=== PATIENT | male | born 1990 | race African-American/Black ===

== ENCOUNTER 2019-05-28 05:57 | Inpatient (IN) | payer OTHER ==
[2019-05-28] MEDS ORDERED: FENTAnyl 50 MCG/ML VIAL ×2 (07:29→11:00)
[2019-05-28] MEDS ORDERED: CLINDAMYCIN 900 MG/D5W (PMX) 0 ML IVPB (07:29)
[2019-05-28] MEDS ORDERED: LIDOCAINE 2% (SDV) 5 ML INJ (07:29)
[2019-05-28] MEDS ORDERED: PROPOFOL 40 ML (07:29)
[2019-05-28] MEDS ORDERED: ROCURONIUM 50 MG INJ ×2 (07:29→08:40)
[2019-05-28] MEDS ORDERED: ONDANSETRON 4 MG INJ (07:29)
[2019-05-28] MEDS ORDERED: MIDAZOLAM 1 MG/ML 2 ML INJ (07:29)
[2019-05-28] MEDS ORDERED: FENTAnyl 50 MCG/ML VIAL IV ×2 (07:30)
[2019-05-28] MEDS ORDERED: DIPHENHYDRAMINE 50 MG INJ IV (07:30)
[2019-05-28] MEDS ORDERED: LABETALOL HCL 20MG INJ IV (07:30)
[2019-05-28] MEDS ORDERED: EPHEDrine 25 MG/5 ML SYG IV (07:30)
[2019-05-28] MEDS ORDERED: HYDROmorphONE 1 MG/5 ML IV SYRINGE IV ×3 (07:30)
[2019-05-28] MEDS ORDERED: morphine 2 MG INJ IV ×2 (07:30)
[2019-05-28] MEDS ORDERED: ALBUTEROL 0.083% (NEB) 2.5 MG/3 ML AMP HHN (07:30)
[2019-05-28 07:31] LABS: INR 0.91; PROTIME 12.4 Sec (11.9-14.9)
[2019-05-28] MEDS ORDERED: ROPIVACAINE 0.5 % 30 ML VIAL (07:42)
[2019-05-28] MEDS ORDERED: FAMOTIDINE 20 MG INJ (07:47)
[2019-05-28] MEDS ORDERED: CEFAZOLIN 1 GM INJ IV (08:00)
[2019-05-28] MEDS ORDERED: ONDANSETRON 4 MG INJ IV (08:00)
[2019-05-28] MEDS ORDERED: CEFAZOLIN 1 GM INJ (08:11)
[2019-05-28] MEDS: POLYMYXIN/BACITRACIN 1L IRRIG ×2 (08:42→10:30)
[2019-05-28] MEDS: ROPIVACAINE 0.5 % 30 ML VIAL (08:42)
[2019-05-28] MEDS: BACITRACIN/POLYMYXIN 28.35 GM OINT TOP (10:30)
[2019-05-28] MEDS ORDERED: NEOSTIGMINE 3 MG/3 ML SYRINGE (10:46)
[2019-05-28] MEDS ORDERED: GLYCOPYRROLATE 0.4 MG INJ (10:46)
[2019-05-28] MEDS ORDERED: hydrALAzine 20 MG INJ (11:51)
[2019-05-28] MEDS: MEPERIDINE 25 MG INJ IV (11:52)
[2019-05-28] MEDS: ONDANSETRON 4 MG INJ IV (11:53)
[2019-05-28] MEDS: hydrALAzine 20 MG INJ IV (12:57)
[2019-05-28] MEDS: HYDROmorphONE 1 MG/ML SYG IV ×3 (13:55→21:35)
[2019-05-28] MEDS: CEFAZOLIN 1 GM/50 ML (PMX) 50 ML IVPB ×2 (16:48→23:09)
[2019-05-28] MEDS: oxyCODONE 5 MG TAB PO (20:04)
[2019-05-29] MEDS ORDERED: hydrOXYzine HCL 25 MG TAB PO (01:00)
[2019-05-29] MEDS: oxyCODONE 5 MG TAB PO ×3 (01:01→10:14)
[2019-05-29] MEDS: HYDROmorphONE 1 MG/ML SYG IV ×3 (03:19→08:27)
[2019-05-29 04:56] LABS: ADD MAN DIFF? NO
[2019-05-29 05:06] LABS: WHITE BLOOD COUNT 10.5 10^3/ul (4.8-10.8)
[2019-05-29 05:06] LABS: BASOPHILS % 0.3 % (0.0-2.0); EOSINOPHILS % 0.1 % (0.0-7.0); HEMOGLOBIN 11.1 g/dl (14.0-18.0); LYMPHOCYTES % 9.6 % (15.0-51.0); MEAN CORPUSCULAR HEMOGLOBIN 27.4 pg (29.0-33.0); MEAN CORPUSCULAR HGB CONC 34.7 g/dl (32.0-37.0); MEAN PLATELET VOLUME 10.5 fl (7.4-10.4); MONOCYTE # 1.1 10^3/ul (0.3-0.9); MONOCYTES % 10.6 % (0.0-11.0); NEUTROPHIL # 8.3 10^3/ul (1.6-7.5); PLATELET COUNT 286 10^3/UL (140-415); RED BLOOD COUNT 4.05 10^6/ul (4.70-6.10); RED CELL DISTRIBUTION WIDTH 14.1 % (11.5-14.5)
[2019-05-29 05:14] LABS: ALANINE AMINOTRANSFERASE 20 IU/L (13-69); ALBUMIN 3.6 g/dl (3.3-4.9); ALKALINE PHOSPHATASE 37 IU/L (42-121); ANION GAP 8 (5-13); ASPARTATE AMINO TRANSFERASE 40 IU/L (15-46); BILIRUBIN,INDIRECT 0.6 mg/dl (0-1.1); BILIRUBIN,TOTAL 0.6 mg/dl (0.2-1.3); BLOOD UREA NITROGEN 8 mg/dl (7-20); CARBON DIOXIDE 27 mmol/L (21-31); CHLORIDE 102 mmol/L (97-110); CREATININE 0.91 mg/dl (0.61-1.24); Estimated GFR > 60 mL/min (>60); GLUCOSE 106 mg/dl (70-220); POTASSIUM 3.8 mmol/L (3.5-5.1); SODIUM 137 mmol/L (135-144); TOTAL PROTEIN 6.6 g/dl (6.1-8.1)
[2019-05-29] MEDS: LEVOTHYROXINE 50 MCG TAB PO (06:25)
[2019-05-29] MEDS: CEFAZOLIN 1 GM/50 ML (PMX) 50 ML IVPB ×3 (06:25→21:28)
[2019-05-29 07:42] LABS: IRON 17 ug/dl (35-150)
[2019-05-29 07:51] LABS: % IRON SATURATION 6 % SAT (22-52); TOTAL IRON BINDING CAPACITY 287 ug/dl (241-421)
[2019-05-29] MEDS: PROPRANOLOL 10 MG TAB PO ×2 (08:25→21:28)
[2019-05-29] MEDS ORDERED: DIVALPROEX (EC) 250 MG TAB PO (09:00)
[2019-05-29] MEDS ORDERED: BENZTROPINE 1 MG TAB PO (09:00)
[2019-05-29] MEDS: ACETAMINOPHEN 325 MG TAB PO (10:14)
[2019-05-29] MEDS: DIPHENHYDRAMINE 25 MG CAP PO (10:14)
[2019-05-29] MEDS ORDERED: HYDROCODONE/APAP (5/325) TAB NGT (11:00)
[2019-05-29] MEDS ORDERED: HYDROCODONE/APAP (5/325) TAB PO (11:00)
[2019-05-29] MEDS: HYDROCODONE/APAP (5/325) TAB PO ×2 (13:28→17:31)
[2019-05-29 14:53] LABS: ADD UMIC NO; UR ASCORBIC ACID NEGATIVE (NEGATIVE); UR BILIRUBIN (Dip) NEGATIVE (NEGATIVE); UR BLOOD (Dip) NEGATIVE (NEGATIVE); UR CLARITY CLEAR (CLEAR); UR COLOR YELLOW (YELLOW); UR GLUCOSE (Dip) 1+ mg/dL (NEGATIVE); UR KETONES (Dip) 1+ mg/dL (NEGATIVE); UR LEUKOCYTE ESTERASE (Dip) NEGATIVE Leu/ul (NEGATIVE); UR NITRITE (Dip) NEGATIVE (NEGATIVE); UR SPECIFIC GRAVITY (Dip) 1.017 (1.003-1.030); UR TOTAL PROTEIN (Dip) NEGATIVE (NEGATIVE); UR UROBILINOGEN (Dip) NEGATIVE (NEGATIVE)
[2019-05-29] MEDS: FERROUS SULFATE (EC) 325 MG TAB PO ×2 (15:33→21:27)
[2019-05-29] MEDS: ERGOCALCIFEROL 50,000 UNIT CAP PO (21:26)
[2019-05-29] MEDS: BENZTROPINE 1 MG TAB PO (21:26)
[2019-05-29] MEDS: ASCORBIC ACID 500 MG TAB PO (21:26)
[2019-05-29] MEDS: DIVALPROEX (EC) 250 MG TAB PO (21:27)
[2019-05-30] MEDS: HYDROCODONE/APAP (5/325) TAB PO ×3 (04:59→17:46)
[2019-05-30] MEDS: CEFAZOLIN 1 GM/50 ML (PMX) 50 ML IVPB (06:06)
[2019-05-30] MEDS: LEVOTHYROXINE 50 MCG TAB PO (06:07)
[2019-05-30] MEDS: ASCORBIC ACID 500 MG TAB PO (09:01)
[2019-05-30] MEDS: FERROUS SULFATE (EC) 325 MG TAB PO (09:01)
[2019-05-30] MEDS: PROPRANOLOL 10 MG TAB PO (09:01)
== END 2019-05-30 19:20 | disposition home or self-care (01) | DRG 488 ==
LOC: SDS 05:57 → MS1 05-30 13:46 → SDS 05:57 → MS1 05-30 13:51 → SDS 07:40 → REC 07:40 → MS1 12:30
PROC: 0SBC4ZZ Excision of Right Knee Joint, Percutaneous Endoscopic Approach (ICD-10-PCS; principal; 2019-05-28 07:30)
PROC: 0QBG0ZZ Excision of Right Tibia, Open Approach (ICD-10-PCS; 2019-05-28 07:30)
PROC: 0MQN0ZZ Repair Right Knee Bursa and Ligament, Open Approach (ICD-10-PCS; 2019-05-28 07:30)
DX: M22.41 Chondromalacia patellae, right knee (principal); J98.11 Atelectasis; M23.51 Chronic instability of knee, right knee; S76.111A Strain of right quadriceps muscle, fascia and tendon, initial encounter; X58.XXXA Exposure to other specified factors, initial encounter; E03.9 Hypothyroidism, unspecified; F31.9 Bipolar disorder, unspecified; D50.9 Iron deficiency anemia, unspecified; R50.82 Postprocedural fever
CPT/HCPCS: 71045; 73560; 80053; 81003; 82306; 82728; 83540; 84443; 85025; 85610; 85730; 87040-91; 87086; 93005; 97116; 97162; 97530; 99217; G0378